=== PATIENT | female | born 1965 | race Caucasian/White ===

== ENCOUNTER 2016-12-04 15:58 | Inpatient (IN) | payer MEDICARE, OTHER ==
[~2016-12-04] VITALS: Ht 147.3 cm; Wt 69.3 kg
[2016-12-04] VITALS (8 sets, daily range): BP systolic 97–165; BP diastolic 61–81; PULSE 65–91; RESP 16–32; TEMP 97.8–99.1; O2SAT 95–99
[~2016-12-04 15:58] MED LIST: ASPI81TA82 PO; CLON.5 PO; FENO50TA PO; FISH1000 PO; FOLI1TAB PO; GUMMCHW PO; JANU100T PO; LAMO25 PO; LANTUSP SQ; MONOTAB PO; MONT10TA2 PO; NOVOLOGP2 SQ; OMEP20TA PO; OXCA300 PO; VITA100018 PO
[2016-12-04] MEDS ORDERED: SODIUM CHLORIDE 0.9% FLUSH 5 ML FLUSH IVF PRN ×2 (16:15→19:15)
--- NOTE | 2016-12-04 16:30 | PD ---
HPI Chief Complaint: seizure Time Seen by Provider: 16:03 Travel History International Travel<30 days: No Contact w/Intl Traveler<30days: No History of Present Illness HPI This is a 51-year-old female who has a history of mental retardation and seizure disorder who presents to the emergency department having had a witnessed seizure 3 hours ago by her mother. It lasted for several minutes and then subsided. Her mom was concerned because she continues to be somewhat post ictal and confused and this is unlike her. The patient is on Lamictal and Tegretol. The patient doesn't provide any history. PFSH Past Medical History High Cholesterol: Yes Developmental Delay: Yes (Age 12 mentation per mother) Diabetes: Yes Diminished Hearing: No Immunizations Current: Yes Seizures: Yes (Epilepsy) Triglycerides - High: Yes Tubal Ligation: Yes Past Surgical History Tonsillectomy: Yes Social History Alcohol Use: No Tobacco Use: No Substance Use: No Allergies-Medications (Allergen,Severity, Reaction): Coded Allergies: Codeine (Verified Allergy, Mild, SEIZURE, 12/04/16) Reported Meds & Prescriptions Reported Meds & Active Scripts Active Reported Folate (Folic Acid) 1 Mg Tab 1 Mg PO DAILY Lamotrigine 100 Mg Tab 100 Mg PO BID Fenofibrate 145 Mg Tab 145 Mg PO DAILY Oxcarbazepine 300 Mg Tab 300 Mg PO TID Omeprazole 20 Mg Tab 20 Mg PO DAILY Losartan (Losartan Potassium) 25 Mg Tab 25 Mg PO DAILY Clonazepam 0.5 Mg Tab 1-2 Tab PO HS Clonazepam 0.5 Mg Tab 0.5 Mg PO DAILY Januvia (Sitagliptin Phosphate) 100 Mg Tab 100 Mg PO DAILY Montelukast (Montelukast Sodium) 10 Mg Tab 10 Mg PO HS Lamotrigine 25 Mg Tab 75 Mg PO BID Review of Systems ROS Limitations: Poor Historian Physical Exam Narrative GENERAL:Well appearing, no acute distress SKIN: Warm and dry. HEAD: Atraumatic. Normocephalic. EYES: Pupils equal and round. No injection or drainage. ENT: Moist mucous membranes NECK: Trachea midline. CARDIOVASCULAR: Regular rate and rhythm. No murmur appreciated. RESPIRATORY: Clear to auscultation. Breath sounds equal bilaterally. GASTROINTESTINAL: Abdomen soft, non-tender, nondistended. MUSCULOSKELETAL: No obvious deformities. NEUROLOGICAL: Awake and alert. No obvious cranial nerve deficits. Moving all extremities. Intermittently has episodes where she blinks, rolls her eyes and looks away, interrupting her speech. PSYCHIATRIC: Appropriate mood and affect; insight and judgment normal. Data Data Last Documented VS Vital Signs Date Time Temp Pulse Resp B/P Pulse Ox O2 Delivery O2 Flow Rate FiO2 12/04/16 17:05 86 16 148/68 97 Room Air 12/04/16 16:10 99.1 Orders Complete Blood Count With Diff (12/04/16 16:12) Blood Glucose (12/04/16 16:12) Ecg Monitoring (12/04/16 16:12) Iv Access Insert/Monitor (12/04/16 16:12) Oximetry (12/04/16 16:12) Comprehensive Metabolic Panel (12/04/16 16:12) Sodium Chloride 0.9% Flush (Ns Flush) (12/04/16 16:15) Lamictal (Lamotrigine) (12/04/16 16:12) Trileptal (Oxycarbazapine) (12/04/16 16:12) Cath For Specimen (12/04/16 16:12) Urinalysis - C+S If Indicated (12/04/16 16:12) Levetiracetam Inj (Keppra Inj) (12/04/16 17:30) Fosphenytoin Inj (Cerebyx Inj) (12/04/16 17:30) Lorazepam Inj (Ativan Inj) (12/04/16 17:30) Admit Order (Ed Use Only) (12/04/16 18:00) Labs Laboratory Tests Test 12/04/16 12/04/16 16:30 17:00 White Blood Count 4.8 TH/MM3 Red Blood Count 3.85 MIL/MM3 Hemoglobin 12.6 GM/DL Hematocrit 37.1 % Mean Corpuscular Volume 96.3 FL Mean Corpuscular Hemoglobin 32.7 PG Mean Corpuscular Hemoglobin 34.0 % Concent Red Cell Distribution Width 12.7 % Platelet Count 189 TH/MM3 Mean Platelet Volume 7.3 FL Neutrophils (%) (Auto) 77.4 % Lymphocytes (%) (Auto) 15.5 % Monocytes (%) (Auto) 6.3 % Eosinophils (%) (Auto) 0.5 % Basophils (%) (Auto) 0.3 % Neutrophils # (Auto) 3.7 TH/MM3 Lymphocytes # (Auto) 0.8 TH/MM3 Monocytes # (Auto) 0.3 TH/MM3 Eosinophils # (Auto) 0.0 TH/MM3 Basophils # (Auto) 0.0 TH/MM3 CBC Comment DIFF FINAL Differential Comment Sodium Level 141 MEQ/L Potassium Level 4.0 MEQ/L Chloride Level 103 MEQ/L Carbon Dioxide Level 29.3 MEQ/L Anion Gap 9 MEQ/L Blood Urea Nitrogen 11 MG/DL Creatinine 0.86 MG/DL Estimat Glomerular Filtration 70 ML/MIN Rate Random Glucose 237 MG/DL Calcium Level 8.7 MG/DL Total Bilirubin 0.3 MG/DL Aspartate Amino Transf 13 U/L (AST/SGOT) Alanine Aminotransferase 21 U/L (ALT/SGPT) Alkaline Phosphatase 50 U/L Total Protein 6.6 GM/DL Albumin 3.5 GM/DL Urine Color YELLOW Urine Turbidity CLERA Urine pH 7.5 Urine Specific [place] 1.015 Urine Protein 100 mg/dL Urine Glucose (UA) 250 mg/dL Urine Ketones NEG mg/dL Urine Occult Blood TRACE Urine Nitrite NEG Urine Bilirubin NEG Urine Leukocyte Esterase NEG Urine RBC 4-9 /hpf Urine WBC 6-8 /hpf Urine Squamous Epithelial 0-5 /hpf Cells Urine Amorphous Sediment MOD Urine Bacteria FEW /hpf Urine Mucus FEW /lpf Microscopic Urinalysis Comment CULT NOT INDICATED MDM Medical Decision Making Medical Screen Exam Complete: Yes Emergency Medical Condition: Yes Interpretation(s) Afebrile, mild tachycardia, mild hypertension No leukocytosis Mild hyperglycemia Differential Diagnosis Seizure, electrolyte abnormality, medication noncompliance, status epilepticus Narrative Course This is a 51-year-old female who presents to the emergency department having had a tonic-clonic seizure 3 hours prior to arrival with prolonged confusion and on my exam intermittent episodes where her eyes beat to the side and she stops speaking concerning for possible partial seizure. She was placed on a monitor and an IV was established. Labs are obtained which were reassuring. I spoke to Dr. Pena who was on-call for neurology who recommended a milligram of Ativan, a load of fosphenytoin, and IV Keppra. Patient will be admitted for neurologic consultation. Physician Communication Physician Communication Discussed with Dr. Pena and Dr. Ledesma Diagnosis Primary Impression: Seizures Admitting Information Admitting Physician Requests: Admit Yolanda Mcnamara MD Dec 04, 2016 16:30
[2016-12-04 16:37] LABS: AUTOMATED NEUTROPHIL # 3.7 TH/MM3 (1.8-7.7); BASOPHIL % 0.3 % (0.0-2.0); EOSINOPHIL % 0.5 % (0.0-4.0); HEMATOCRIT 37.1 % (35.0-46.0); HEMO FLAGS DIFF FINAL; LYMPH % 15.5 % (9.0-44.0); LYMPHOCYTE # 0.8 TH/MM3 (1.0-4.8); MEAN CELL VOLUME 96.3 FL (80.0-100.0); MEAN CORPUSCULAR HEMOGLOBIN 32.7 PG (27.0-34.0); MONO % 6.3 % (0.0-8.0); NEUT % 77.4 % (16.0-70.0); PLATELET COUNT 189 TH/MM3 (150-450); RED BLOOD COUNT 3.85 MIL/MM3 (4.00-5.30); RED CELL DISTRIBUTION WIDTH 12.7 % (11.6-17.2); WHITE BLOOD COUNT 4.8 TH/MM3 (4.0-11.0)
[2016-12-04 16:51] LABS: CHLORIDE 103 MEQ/L (98-107); SODIUM (NA) 141 MEQ/L (136-145)
[2016-12-04 16:54] LABS: ANION GAP 9 MEQ/L (5-15); BICARBONATE 29.3 MEQ/L (21.0-32.0)
[2016-12-04 16:55] LABS: BLOOD UREA NITROGEN 11 MG/DL (7-18)
[2016-12-04 16:57] LABS: ALT (GPT) 21 U/L (10-53)
[2016-12-04 16:58] LABS: AST (GOT) 13 U/L (15-37); GLOMERULAR FILTRATION RATE 70 ML/MIN (>89)
[2016-12-04 16:59] LABS: TOTAL BILIRUBIN ADULT 0.3 MG/DL (0.2-1.0)
[2016-12-04 17:00] LABS: ALKALINE PHOSPHATASE 50 U/L (45-117)
[2016-12-04] MEDS ORDERED: OMEP20TA PO (17:11)
[2016-12-04] MEDS ORDERED: LAMO100T PO (17:11)
[2016-12-04] MEDS ORDERED: FOLI1TAB4 PO (17:11)
[2016-12-04] MEDS ORDERED: CLON0.5T PO ×2 (17:11)
[2016-12-04] MEDS ORDERED: MONT10TA4 PO (17:11)
[2016-12-04] MEDS ORDERED: OXCA300T PO (17:11)
[2016-12-04] MEDS ORDERED: LOSA25TA PO (17:11)
[2016-12-04] MEDS ORDERED: SITA1TAB2 PO (17:11)
[2016-12-04] MEDS ORDERED: FENO145T2 PO (17:11)
[2016-12-04] MEDS ORDERED: LAMO25TA PO (17:11)
[2016-12-04 17:23] LABS: BLOOD, URINE TRACE (NEG); GLUCOSE,URINE 250 mg/dL (NEG); KETONE, URINE NEG (NEG); NITRITE,URINE NEG (NEG); PH, URINE 7.5 (5.0-8.5)
[2016-12-04 17:27] LABS: URINE COLOR YELLOW (YELLW/STRAW)
[2016-12-04 17:28] LABS: BACTERIA, URINE FEW /hpf; COMMENT (UR) CULT NOT INDICATED; CULTURE IF INDICATED CULT NOT INDICATED; MUCUS URINE FEW /lpf (OCC); SQUAMOUS EPITHELIAL CELL URINE 0-5 /hpf (0-5)
[2016-12-04] MEDS ORDERED: FOSPHENYTOIN INJ 1,000 MGPE in SODIUM CHLORIDE 0.9% INJ 50 ML IV ONE (17:30)
[2016-12-04] MEDS ORDERED: LORazepam 2 MG/ML VIAL IV PUSH ONE (17:30)
[2016-12-04] MEDS ORDERED: levETIRAcetam INJ 500 MG in SODIUM CHLORIDE 0.9% INJ 100 ML IV ONE (17:30)
[2016-12-04] MEDS ORDERED: ONDANSETRON HCL 4 MG/2 ML VIAL IV ONE (18:45)
[2016-12-04] MEDS ORDERED: LORazepam 2 MG/ML VIAL IV PUSH PRN (19:15)
[2016-12-04] MEDS ORDERED: DEXTROSE 50% IN WATER 50 ML VIAL(D50) IV PUSH PRN (19:15)
[2016-12-04] MEDS ORDERED: GLUCAGON 1 MG/ML VIAL OTHER PRN (19:15)
--- NOTE | 2016-12-04 20:04 | RADHPO ---
EXAM DATE/TIME: 12/04/2016 19:42 [place] COMPARISON: CT BRAIN W/O CONTRAST, April 20, 2016, 11:01. INDICATIONS : Seizure. RADIATION DOSE: 63.13 CTDIvol (mGy) MEDICAL HISTORY : Diabetes mellitus type 2. Seizures. Hypertension. SURGICAL HISTORY : None. ENCOUNTER: Initial ACUITY: 1 day PAIN SCALE: 0/10 LOCATION: cranial TECHNIQUE: Multiple contiguous axial images were obtained of the head. Using automated exposure control and adj ustment of the mA and/or kV according to patient size, radiation dose was kept as low as reasonably a chievable to obtain optimal diagnostic quality images. FINDINGS: CEREBRUM: The ventricles are normal for age. No evidence of midline shift, mass lesion, hemorrhage or acute in farction. No extra-axial fluid collections are seen. POSTERIOR FOSSA: The cerebellum and brainstem are intact. The 4th ventricle is midline. The cerebellopontine angle i s unremarkable. EXTRACRANIAL: The visualized portion of the orbits is intact. SKULL: The calvaria is intact. No evidence of skull fracture. CONCLUSION: No acute intracranial abnormality. Osmani Scott MD on December 04, 2016 at 20:02 Board Certified Radiologist. This report was verified electronically.
[2016-12-04] MEDS: INSULIN ASPART SUPPLEMENTAL SCALE SQ SCH (20:58)
[2016-12-04] MEDS: SODIUM CHLORIDE 0.9% FLUSH 5 ML FLUSH IVF SCH (21:30)
[2016-12-05] VITALS (26 sets, daily range): BP systolic 107–173; BP diastolic 54–85; PULSE 62–80; RESP 15–30; TEMP 97.4–98.3; O2SAT 93–98
[2016-12-05] MEDS: CHLORHEXIDINE GLUCONATE 2 % 1 PACK (2 CLOTHS)(taper/protocol) TOP SCH (02:17)
[2016-12-05 04:57] LABS: BASOPHIL % 0.6 % (0.0-2.0); EOSINOPHIL # 0.1 TH/MM3 (0-0.4); EOSINOPHIL % 1.6 % (0.0-4.0); HEMATOCRIT 38.4 % (35.0-46.0); HEMO FLAGS DIFF FINAL; LYMPH % 38.7 % (9.0-44.0); LYMPHOCYTE # 2.2 TH/MM3 (1.0-4.8); MEAN CELL VOLUME 96.6 FL (80.0-100.0); MEAN CORPUSCULAR HGB CONC 33.1 % (32.0-36.0); MONO % 8.1 % (0.0-8.0); PLATELET COUNT 197 TH/MM3 (150-450); RED BLOOD COUNT 3.97 MIL/MM3 (4.00-5.30); RED CELL DISTRIBUTION WIDTH 13.6 % (11.6-17.2); WHITE BLOOD COUNT 5.8 TH/MM3 (4.0-11.0)
[2016-12-05 05:05] LABS: CHLORIDE 106 MEQ/L (98-107); POTASSIUM 3.7 MEQ/L (3.5-5.1); SODIUM (NA) 142 MEQ/L (136-145)
[2016-12-05 05:09] LABS: ANION GAP 7 MEQ/L (5-15); BICARBONATE 29.4 MEQ/L (21.0-32.0)
[2016-12-05 05:32] LABS: ALKALINE PHOSPHATASE 42 U/L (45-117); ALT (GPT) 21 U/L (10-53); AST (GOT) 10 U/L (15-37); BLOOD UREA NITROGEN 10 MG/DL (7-18); GLOMERULAR FILTRATION RATE 85 ML/MIN (>89); TOTAL BILIRUBIN ADULT 0.3 MG/DL (0.2-1.0)
[2016-12-05] MEDS: INSULIN ASPART SUPPLEMENTAL SCALE SQ SCH ×4 (06:58→21:13)
[2016-12-05] MEDS: SODIUM CHLORIDE 0.9% FLUSH 5 ML FLUSH IVF SCH ×2 (09:00→21:13)
--- NOTE | 2016-12-05 10:22 | HHI.HP ---
[facility] Service [place] [facility] Primary Care Physician Erwin Roberson MD Admission Diagnosis seizures Diagnoses: (1) Seizures Diagnosis: Principal (2) Hypertension Diagnosis: Secondary (3) Hyperlipidemia Diagnosis: Secondary (4) Diabetes Diagnosis: Secondary (5) Developmental delay Diagnosis: Secondary Chief Complaint: Seizure Travel History International Travel<30 Days: No Contact w/Intl Traveler <30 Da: No Traveled to Known Affected Are: No History of Present Illness 51-year-old female with known history of developmental delay, seizure disorder, hypertension, hyperlipidemia, diabetes who presented to hospital with her mother because of witnessed seizure. Patient does have significant developmental delay. Was able to obtain any significant history from the patient. Information taken from medical records and nursing staff. Patient does have history of seizures and apparently had a witnessed tonic-clonic seizure at home. Patient was brought to the emergency department and was given IV Keppra, IV fosphenytoin. As indicated by ER physician the patient was still having some tremulous activity. However when seen the patient this morning she is wide awake. Conversing appropriate for her mentation. States that she is feeling fine. States that she was sick yesterday that when she came to the hospital. Patient is on multiple medications for seizures to include Lamictal, oxcarbazepine, clonazepam. Records do not indicate patient has been admitted the hospital for for seizures. Patient was admitted the hospital to the ICU for close monitoring and neurological workup. Review of Systems ROS Limitations: Poor Historian Past Family Social History Past Medical History Hypertension Hyperlipidemia Developmental delay Seizure disorder Diabetes Past Surgical History Tubal ligation cataract surgery Tonsillectomy Reported Medications Reported Meds & Active Scripts Active Reported Folate (Folic Acid) 1 Mg Tab 1 Mg PO DAILY Lamotrigine 100 Mg Tab 100 Mg PO BID Fenofibrate 145 Mg Tab 145 Mg PO DAILY Oxcarbazepine 300 Mg Tab 300 Mg PO TID Omeprazole 20 Mg Tab 20 Mg PO DAILY Losartan (Losartan Potassium) 25 Mg Tab 25 Mg PO DAILY Clonazepam 0.5 Mg Tab 1-2 Tab PO HS Clonazepam 0.5 Mg Tab 0.5 Mg PO DAILY Januvia (Sitagliptin Phosphate) 100 Mg Tab 100 Mg PO DAILY Montelukast (Montelukast Sodium) 10 Mg Tab 10 Mg PO HS Lamotrigine 25 Mg Tab 75 Mg PO BID Allergies: Coded Allergies: Codeine (Verified Allergy, Mild, SEIZURE, 12/04/16) Family History Reviewed and unknown due to poor historian and developmental delay Social History Reviewed is unknown due to poor historian and developmental delay Physical Exam Vital Signs Vital Signs Date Time Temp Pulse Resp B/P Pulse Ox O2 Delivery O2 Flow Rate FiO2 12/05/16 09:00 64 23 151/85 12/05/16 08:00 66 17 131/72 12/05/16 07:45 97 21 12/05/16 07:00 97.6 70 15 120/81 12/05/16 06:00 66 12/05/16 06:00 66 17 140/68 97 12/05/16 05:00 68 19 119/60 12/05/16 04:00 97.4 66 16 117/54 96 12/05/16 04:00 66 12/05/16 03:15 62 12/05/16 03:15 62 15 149/79 96 12/05/16 03:00 68 19 173/76 97 12/05/16 03:00 68 12/05/16 02:00 66 17 136/67 95 12/05/16 02:00 66 12/05/16 01:00 70 23 107/65 93 12/05/16 00:00 72 26 150/76 94 12/05/16 00:00 72 12/04/16 23:24 97.8 74 32 165/81 98 12/04/16 21:20 65 18 143/73 99 Room Air 12/04/16 20:29 95 12/04/16 19:10 74 97/61 95 Room Air 12/04/16 18:08 83 16 141/70 97 Room Air 12/04/16 17:05 86 16 148/68 97 Room Air 12/04/16 16:20 17 96 Room Air 12/04/16 16:20 91 17 96 Room Air 12/04/16 16:10 99.1 91 17 157/70 96 Physical Exam GENERAL: Well-developed, well-nourished, in no acute distress. alert HEENT: Head is normocephalic without any lesions or masses noted. Facial features are symmetric. Eyes: Pupils equal round reactive to light. Extraocular muscles are intact. Conjunctivae were clear. Oropharyngeal: Pharynx without any erythema edema. Tongue is midline without deviation. Buccal mucosa is moist without any masses or lesions NECK: Supple without any masses. Trachea midline no deviation. No JVD, no bruits are appreciated CARDIAC: Regular rhythm, regular rate. S1/S2 are heard. No murmurs gallops or rubs. LUNGS: Clear to auscultation bilaterally. No wheeze, rhonchi or rales. No use of accessory muscles on inspiration or expiration. ABDOMEN: Soft, nontender. Nondistended. Bowel sounds heard in all 4 quadrants. No organomegaly or masses. Negative rebound, negative guarding EXTREMITIES: No edema, pulses are equal bilaterally. No cyanosis or clubbing NEUROLOGY: Mood and affect appear appropriate for patient with developmental delay. Cranial nerves II through XII grossly intact. Muscle strength 5/5 in upper and lower extremities bilaterally. Deep tendon reflexes are 2+ in upper and lower extremities bilaterally. Laboratory Laboratory Tests Test 12/04/16 12/04/16 12/04/16 12/05/16 16:30 17:00 23:45 04:28 White Blood Count 4.8 5.8 Red Blood Count 3.85 3.97 Hemoglobin 12.6 12.7 Hematocrit 37.1 38.4 Mean Corpuscular Volume 96.3 96.6 Mean Corpuscular Hemoglobin 32.7 32.0 Mean Corpuscular Hemoglobin 34.0 33.1 Concent Red Cell Distribution Width 12.7 13.6 Platelet Count 189 197 Mean Platelet Volume 7.3 8.2 Neutrophils (%) (Auto) 77.4 51.0 Lymphocytes (%) (Auto) 15.5 38.7 Monocytes (%) (Auto) 6.3 8.1 Eosinophils (%) (Auto) 0.5 1.6 Basophils (%) (Auto) 0.3 0.6 Neutrophils # (Auto) 3.7 3.0 Lymphocytes # (Auto) 0.8 2.2 Monocytes # (Auto) 0.3 0.5 Eosinophils # (Auto) 0.0 0.1 Basophils # (Auto) 0.0 0.0 CBC Comment DIFF FINAL DIFF FINAL Differential Comment Sodium Level 141 142 Potassium Level 4.0 3.7 Chloride Level 103 106 Carbon Dioxide Level 29.3 29.4 Anion Gap 9 7 Blood Urea Nitrogen 11 10 Creatinine 0.86 0.73 Estimat Glomerular Filtration 70 85 Rate Random Glucose 237 119 Calcium Level 8.7 8.9 Total Bilirubin 0.3 0.3 Aspartate Amino Transf 13 10 (AST/SGOT) Alanine Aminotransferase 21 21 (ALT/SGPT) Alkaline Phosphatase 50 42 Total Protein 6.6 6.4 Albumin 3.5 3.5 Urine Color YELLOW Urine Turbidity CLERA Urine pH 7.5 Urine Specific [place] 1.015 Urine Protein 100 Urine Glucose (UA) 250 Urine Ketones NEG Urine Occult Blood TRACE Urine Nitrite NEG Urine Bilirubin NEG Urine Leukocyte Esterase NEG Urine RBC 4-9 Urine WBC 6-8 Urine Squamous Epithelial 0-5 Cells Urine Amorphous Sediment MOD Urine Bacteria FEW Urine Mucus FEW Microscopic Urinalysis Comment CULT NOT INDICATED Nasal Screen MRSA (PCR) NEGATIVE Phenytoin (Dilantin) Level 13.6 Result Diagram: 12/05/168 12/05/168 Imaging Last Impressions Head CT 12/04/16 0000 Signed Impressions: Service Date/Time: November 19:42 - CONCLUSION: No acute intracranial abnormality. Osmani Scott MD Assessment and Plan Assessment and Plan Active seizure in patient with known history of seizures: Status post fosphenytoin, Keppra IV in emergency department. Dilantin level 13.6. Obtain levels for oxcarbazepine, Lamictal. Obtain EEG. Neurology consulted for further recommendations. Resume home medications Hypertension, hyperlipidemia: Resume home medications Diabetes: Resume home medications DVT prevention: Sequential compression devices Written by Darwin Humphries PA-C, acting as scribe for Dr. Ledesma on 11/1716 at 1050. The documentation accurately reflects the work and decisions performed face-to- face by Dr. Ledesma on 12/05/16 at 1050. Physician Certification 2 Midnight Certification Type: Admission for Inpatient Services Order for Inpatient Services The services are ordered in accordance with Medicare regulations or non- Medicare payer requirements, as applicable. In the case of services not specified as inpatient-only, they are appropriately provided as inpatient services in accordance with the 2-midnight benchmark. Estimated LOS (days): 2 days is the estimated time the patient will need to remain in the hospital, assuming treatment plan goals are met and no additional complications. Post-Hospital Plan: Not yet determined Problem Qualifiers (1) Hypertension: Qualified Code: I15.9 - Secondary hypertension (2) Hyperlipidemia: Qualified Code: E78.5 - Hyperlipidemia, unspecified hyperlipidemia type (3) Diabetes: Qualified Code: E11.8 - Type 2 diabetes mellitus with complication, without long-term current use of insulin Darwin Humphries Dec 05, 2016 10:22 Devorah Ledesma MD Dec 05, 2016 18:10
--- NOTE | 2016-12-05 11:03 | MB ---
cc: NANDO SOUSA MD DATE OF CONSULTATION 12/05/2016 REASON FOR CONSULTATION Break through seizures. HISTORY OF PRESENT ILLNESS Ms. Leon is a 51-year-old female with past medical history of mental retardation and seizure disorder who presented to the emergency department of [facility] having a witnessed seizure by her mother. The patient is a poor historian, hence most of the medical information is obtained from the nurse and the medical records. As per the mother, the episode lasted for several minutes, followed by postictal confusional state. The patient is on a Lamictal 75 mg twice daily and Oxcarbazepine 300 mg three times daily. REVIEW OF SYSTEMS A 12-point review of systems is negative except for what is stated in the HPI. PAST MEDICAL HISTORY 1. Hypercholesterolemia 2. Developmental delay and mental retardation about age 12 years mentation per the mother. 3. Diabetes 4. High triglycerides 5. Tubal ligation 6. Status post tonsillectomy SOCIAL HISTORY Denies alcohol, tobacco and substance abuse. ALLERGIES CODEINE REPORTED MEDICATIONS 1. Folic acid 1 mg daily 2. Lamotrigine 100 mg twice daily 3. Oxcarbazepine 300 mg three times daily 4. Clonazepam 0.5 mg twice daily PHYSICAL EXAMINATION GENERAL: Awake, alert, not in acute distress HEENT: Atraumatic, normocephalic. Intact vision. Normal hearing. CARDIOVASCULAR: Regular rate and rhythm. RESPIRATORY: Clear to auscultation. No wheezes. MUSCULOSKELETAL: There is no obvious deformities, moves all extremities equally. No clubbing. NEUROLOGIC: Awake, alert, oriented to time, person and place. However, her level of cognition is limited due to the mental retardation. She is able to reach. She is able to speak coherently, however with limited knowledge. Speech is intact. No slurring. No dysphagia. Cranial nerve examination is grossly intact II-XII. Motor sensory examination is grossly normal with a lot of give-way, sensation intact bilaterally throughout. Cerebellar functions intact [id number]. Reflexes are intact. Plantar's are bilaterally downgoing. LABORATORY DATA White blood cells 5.8, hemoglobin 12.7, platelet 197. Sodium 142, potassium 3.7 , anion gap 7, calcium 8.9, AST 10, alkaline phosphatase 42. Phenytoin level is therapeutic at 30.6 pending oxcarbazepine and Lamotrigine. DIAGNOSTICS IMAGING - Head CT scan without contrast is negative for an acute intracranial abnormality. DIAGNOSTIC IMPRESSION 1. History of mental retardation. 2. History of seizure disorder. The patient is currently on Lamotrigine and Oxcarbazepine. 3. Breakthrough seizures 4. The patient is a poor historian. There was no family around and no verification for the doses and the adherence to medication. However, further workup will be done so an EEG will be obtained. PLAN 1. Resume her home medications of oxcarbazepine dose of 300 mg three times daily and we can go up on the oxcarbazepine to 1200 mg per day in divided doses. 2. Resume Lamictal (Lamotrigine home medication). It is not clear what her exact home dose is, but according to the records, 350 mg. 3. Pending the levels of the anti-seizure medications. 4. Seizure precautions. 5. Ativan for seizures lasting more than three minutes Thank you for the opportunity to participate in the care of your patient. MD CHEMA Yates/MECHE /9:37 AM /10:28 AM ALL
[2016-12-05] MEDS: lamoTRIgine 100 MG TAB PO SCH ×2 (11:28→21:12)
[2016-12-05] MEDS: LOSARTAN 25 MG TAB PO SCH (11:28)
[2016-12-05] MEDS: FENOFIBRATE 145 MG TAB PO SCH (11:28)
[2016-12-05] MEDS: FOLIC ACID 1 MG TAB PO SCH (11:28)
[2016-12-05] MEDS: clonazePAM 0.5 MG TAB PO SCH (11:28)
[2016-12-05] MEDS: PANTOPRAZOLE SOD 20 MG DELAYED RELEASE TAB PO SCH (11:28)
[2016-12-05] MEDS: OXcarbazepine 300 MG TAB PO SCH ×2 (11:38→17:04)
[2016-12-05] MEDS: lamoTRIgine 25 MG TAB PO SCH ×2 (11:38→21:12)
[2016-12-05] MEDS ORDERED: CHLORHEXIDINE GLUCONATE 2 % 1 PACK (2 CLOTHS)(extra cloths) TOP PRN (23:45)
[2016-12-06] VITALS (21 sets, daily range): BP systolic 140–199; BP diastolic 67–98; PULSE 56–78; RESP 14–27; TEMP 97.8–98; O2SAT 95–98
[2016-12-06] MEDS: CHLORHEXIDINE GLUCONATE 2 % 1 PACK (2 CLOTHS)(taper/protocol) TOP SCH (02:27)
[2016-12-06] MEDS ORDERED: cloNIDine HCL 0.1 MG TAB PO ONE (02:30)
[2016-12-06] MEDS: INSULIN ASPART SUPPLEMENTAL SCALE SQ SCH ×2 (06:48→11:40)
[2016-12-06] MEDS: LOSARTAN 25 MG TAB PO SCH (08:24)
[2016-12-06] MEDS: lamoTRIgine 25 MG TAB PO SCH (08:24)
[2016-12-06] MEDS: OXcarbazepine 300 MG TAB PO SCH ×2 (08:25→13:33)
[2016-12-06] MEDS: lamoTRIgine 100 MG TAB PO SCH (08:25)
[2016-12-06] MEDS: FOLIC ACID 1 MG TAB PO SCH (08:25)
[2016-12-06] MEDS: clonazePAM 0.5 MG TAB PO SCH (08:25)
[2016-12-06] MEDS: FENOFIBRATE 145 MG TAB PO SCH (08:25)
[2016-12-06] MEDS: PANTOPRAZOLE SOD 20 MG DELAYED RELEASE TAB PO SCH (08:25)
[2016-12-06] MEDS: SODIUM CHLORIDE 0.9% FLUSH 5 ML FLUSH IVF SCH (08:30)
--- NOTE | 2016-12-06 09:25 | HHI.PR ---
Subjective Remarks Patient seen and examined today with Dr. Ledesma. Patient quite pleasant this morning. Has been no recurrent seizures since being in the hospital. Will need to discuss with neurology treatment plan. Objective Vitals Vital Signs Date Time Temp Pulse Resp B/P Pulse Ox O2 Delivery O2 Flow Rate FiO2 12/06/16 08:46 98 21 12/06/16 08:00 98.0 64 16 141/67 98 12/06/16 06:00 56 14 160/86 12/06/16 06:00 56 12/06/16 05:00 60 16 140/70 12/06/16 04:02 97.9 68 16 170/85 95 12/06/16 04:00 64 12/06/16 03:00 68 18 195/78 12/06/16 02:00 74 12/06/16 02:00 74 16 199/89 95 12/06/16 01:02 68 21 195/91 12/06/16 00:22 97.9 66 15 173/86 96 12/06/16 00:00 66 12/05/16 22:00 70 12/05/16 21:00 70 22 151/68 12/05/16 20:36 98 21 12/05/16 20:00 98.0 66 19 138/72 96 12/05/16 20:00 62 12/05/16 19:00 70 23 119/61 96 12/05/16 18:00 68 12/05/16 17:00 98.3 66 22 119/72 12/05/16 16:00 68 18 119/64 12/05/16 16:00 68 12/05/16 15:00 98.2 80 30 113/68 12/05/16 14:00 80 12/05/16 13:00 97.4 76 20 116/72 12/05/16 12:00 72 24 126/68 12/05/16 12:00 72 12/05/16 11:00 97.8 70 22 128/84 12/05/16 10:00 62 15 155/74 97 12/05/16 10:00 62 I/O 12/05/16 12/05/16 12/05/16 12/06/16 12/06/16 12/06/16 07:00 15:00 23:00 07:00 15:00 23:00 Intake Total 0 ml 460 ml 120 ml 120 ml Output Total 800 ml 600 ml 225 ml Balance -800 ml -140 ml 120 ml -105 ml Intake Oral 0 ml 460 ml 120 ml 120 ml IV Total 0 ml 0 ml Output Urine Total 800 ml 600 ml 225 ml # Voids 3 3 1 # Bowel Movements 0 0 0 0 Result Diagram: 12/05/1642712/05/16427 Objective Remarks GENERAL: Well-developed, well-nourished, in no acute distress. alert HEENT: Head is normocephalic without any lesions or masses noted. Facial features are symmetric. Eyes: Extraocular muscles are intact. Conjunctivae were clear. NECK: Supple without any masses. Trachea midline no deviation. No JVD, CARDIAC: Regular rhythm, regular rate. S1/S2 are heard. No murmurs gallops or rubs. LUNGS: Clear to auscultation bilaterally. No wheeze, rhonchi or rales. No use of accessory muscles on inspiration or expiration. ABDOMEN: Soft, nontender. Nondistended. Bowel sounds heard in all 4 quadrants. No organomegaly or masses. Negative rebound, negative guarding EXTREMITIES: No edema, pulses are equal bilaterally. No cyanosis or clubbing NEUROLOGY: Mood and affect appear appropriate for patient with developmental delay. Cranial nerves II through XII grossly intact. Moving all extremities, speech is clear Urinary Catheter: No Vascular Central Line Catheter: No A/P Assessment and Plan Active seizure in patient with known history of seizures: Status post fosphenytoin, Keppra IV in emergency department. Dilantin level 13.6. Awaiting levels for oxcarbazepine, Lamictal. Awaiting EEG results. Neurology consulted for further recommendations. Home medications have been resumed. Discussed with neurology Dr Cabrera, he is concerned about compliancy with outpatient medications. He feels that the patient can be discharged on same medications that she was taking outpatient setting. However, he indicates that the patient should follow-up with her neurologist on Thursday. Did continue to follow therapeutic drug levels and if they are low should notify them an increased dose if possible. Hypertension, hyperlipidemia: Resume home medications Diabetes: Resume home medications DVT prevention: Sequential compression devices Written by Darwin Humphries PA-C, acting as scribe for Dr. Ledesma on 11/1816 at 1405. The documentation accurately reflects the work and decisions performed face-to- face by Dr. Ledesma on 12/06/16 at 1405. Discharge Planning Discharge home in stable condition Activity: Ad teja. Diet: Diabetic diet Medications per medication reconciliation Follow-up primary medical doctor one week, neurologist on Thursday Darwin Humphries Dec 06, 2016 09:25 Devorah Ledesma MD Dec 06, 2016 20:00
--- NOTE | 2016-12-06 12:05 | MG ---
cc: STU WANG MD Lab No: [id number] Date: 12/05/16 Age: 51 Sex: F Race: DATE OF : 1965 HISTORY A 51-year-old with history of breakthrough seizure with history of previous epilepsy and seizures. DESCRIPTION OF RECORDING 7-8 Hz high amplitude beta activity, 20-60 microvolts occurring. Limited driving with photic stimulation. Tiny sharp waves T4 seen at epoch 40. Tiny spike wave T4 epoch 43. Frontal sharp waves epoch 45. Phase reversal at T6 epoch 64. to tiny phase reversal at T5 epoch 66. Right frontal sharp waves epoch 71. Left frontal sharp wave epoch 95. T5 phase reversal epoch 95. epoch 97. Left posterior hemisphere phase reversal epoch 98, generalized slowing with transition into drowsy state. Frontal sharp waves epoch 102. Dysmorphic bursts of delta sharps epoch 109. Single-lead EKG showing sinus rhythm. INTERPRETATION Frequent isolated multifocal but perhaps right-sided greater than left frontotemporal sharp waves, small phase reversals with underlying mild encephalopathy in sleep state. No active seizures however. Clinical correlation. MD RAYMUNDO Dowd/HARRY /10:17 AM /11:22 AM [id number]
--- NOTE | 2016-12-06 14:12 | HHI.DCPOC ---
Discharge Care Plan Diagnosis: (1) Seizures (2) Developmental delay Goals to Promote Your Health * To prevent worsening of your condition and complications * To maintain your health at the optimal level Directions to Meet Your Goals Take your medications as prescribed Follow your dietary instruction Follow activity as directed Keep your appointments as scheduled Take your immunizations and boosters as scheduled If your symptoms worsen call your PCP, if no PCP go to Urgent Care Center or Emergency Room Smoking is Dangerous to Your Health. Avoid second hand smoke Call the 24-hour hour crisis hotline for domestic abuse at [facility] Humphries Dec 06, 2016 14:12
== END 2016-12-06 14:45 | disposition home or self-care (01) | DRG 101 ==
LOC: PHED 15:58 → PHEDA 18:01 → PHICU 23:18
PROVIDERS: ADMIT Hospitalist; ATTEND Hospitalist
DX: G40.89 Other seizures (principal); I10 Essential (primary) hypertension; F79 Unspecified intellectual disabilities; E11.9 Type 2 diabetes mellitus without complications; E78.1 Pure hyperglyceridemia; E78.00 Pure hypercholesterolemia, unspecified
CPT/HCPCS: 70450; 80053; 80175; 80183; 80185; 81001; 82948; 85025; 87641; 95819; 96374; J1815; J1953; J2060; J2405; P9612; Q2009

== ENCOUNTER 2017-01-24 14:12 | Emergency (ER) | payer MEDICARE, OTHER ==
[~2017-01-24] VITALS: Ht 149.9 cm; Wt 70.0 kg
[~2017-01-24 14:12] MED LIST changes: -ASPI81TA82 PO; -CLON.5 PO; +CLON0.5T PO; +FENO145T2 PO; -FENO50TA PO; -FISH1000 PO; -FOLI1TAB PO; +FOLI1TAB4 PO; -GUMMCHW PO; -JANU100T PO; +LAMO100T PO; -LAMO25 PO; +LAMO25TA PO; -LANTUSP SQ; +LOSA25TA PO; -MONOTAB PO; -MONT10TA2 PO; +MONT10TA4 PO; -NOVOLOGP2 SQ; -OXCA300 PO; +OXCA300T PO; +SITA1TAB2 PO; -VITA100018 PO
[2017-01-24 14:27] VITALS: PULSE 73; RESP 16; TEMP 98.3; O2SAT 100
[2017-01-24] MEDS ORDERED: NOVOLOGP2 SQ (14:46)
[2017-01-24] MEDS ORDERED: LANTUS2P SQ (14:46)
--- NOTE | 2017-01-24 15:12 | PD ---
HPI Chief Complaint: Musculoskeletal Complaint Time Seen by Provider: 15:00 Travel History International Travel<30 days: No Contact w/Intl Traveler<30days: No Traveled to known affect area: No History of Present Illness HPI 51-year-old female with history of seizures presents to the emergency room with her mother for evaluation of left arm pain. Patient is developmentally delayed with a mentality of a 10-year-old according to mother. Mother provides some of the history. Mother states she has had uncontrollable seizures since 13-months- old and her physicians are constantly changing her medication. Mother states one week ago she had a seizure and banged her arm. Since then she has been complaining of left arm pain, worse with range of motion. States anytime she moves her arm she is in significant pain. Her mother has been applying heat, ice, massage and, and applying topical pain reliever without significant relief. Patient cannot localize her pain but states her entire left arm hurts. Denies paresthesias. Denies any other injuries. She denies chest pain. PFSH Past Medical History Anxiety: Yes Cardiovascular Problems: Yes High Cholesterol: Yes Developmental Delay: Yes (Age 12 mentation per mother) Diabetes: Yes Patient Takes Glucophage: Yes Diminished Hearing: No GERD: Yes Hypertension: Yes Neurologic: Yes Immunizations Current: Yes Seizures: Yes (Epilepsy) Triglycerides - High: Yes Tetanus Vaccination: < 5 Years Influenza Vaccination: Yes ?: Not Menopausal: Yes Tubal Ligation: Yes Past Surgical History Endocrine Surgery: Yes (Diabetes) Gynecologic Surgery: Yes (tubal ligation) Tonsillectomy: Yes Social History Alcohol Use: No Tobacco Use: No Substance Use: No Allergies-Medications (Allergen,Severity, Reaction): Coded Allergies: Codeine (Verified Allergy, Mild, SEIZURE, 01/24/17) Reported Meds & Prescriptions Reported Meds & Active Scripts Active Reported Lantus Inj (Insulin Glargine) 1,000 Unit/10 Ml Vial 22 Units SQ HS Novolog Inj (Insulin Aspart) 1,000 Unit/10 Ml Vial 0 SQ DIRECTED Sliding Scale as directed. Folate (Folic Acid) 1 Mg Tab 1 Mg PO DAILY Lamotrigine 100 Mg Tab 100 Mg PO BID Fenofibrate 145 Mg Tab 145 Mg PO DAILY Oxcarbazepine 300 Mg Tab 300 Mg PO QID Omeprazole 20 Mg Tab 20 Mg PO DAILY Losartan (Losartan Potassium) 25 Mg Tab 25 Mg PO DAILY Clonazepam 0.5 Mg Tab 0.5 Mg PO TID Januvia (Sitagliptin Phosphate) 100 Mg Tab 100 Mg PO DAILY Montelukast (Montelukast Sodium) 10 Mg Tab 10 Mg PO HS Lamotrigine 25 Mg Tab 150 Mg PO BID Review of Systems Except as stated in HPI: all other systems reviewed are Neg Physical Exam Narrative GENERAL: Well-nourished, developmentally delayed female in no acute distress. Resting comfortably in bed. Mother is with patient. SKIN: Focused skin assessment warm/dry. Large area of ecchymosis on the volar left wrist. HEAD: Normocephalic. EYES: No scleral icterus. No injection or drainage. NECK: Supple, trachea midline. No JVD or lymphadenopathy. CARDIOVASCULAR: Regular rate and rhythm without murmurs, gallops, or rubs. RESPIRATORY: Breath sounds equal bilaterally. No accessory muscle use. MUSCULOSKELETAL: No cyanosis. No significant edema. When distracted, patient uses her arm more freely. There is no point tenderness to palpation. 2+ radial pulse. Limited range of motion secondary to pain. Data Data Last Documented VS Vital Signs Date Time Temp Pulse Resp B/P Pulse Ox O2 Delivery O2 Flow Rate FiO2 01/24/17 14:36 16 01/24/17 14:27 98.3 73 100 Orders Forearm (2vws) (01/24/17 ) Humerus (Min 2vws) (01/24/17 ) MDM Medical Decision Making Medical Screen Exam Complete: Yes Emergency Medical Condition: Yes Medical Record Reviewed: Yes Differential Diagnosis Sprain versus fracture versus contusion Narrative Course 51-year-old female with history of developmental delay and seizures presents to the emergency room for evaluation of left arm pain for the past week. Patient has had seizures since 13-months old. She believes during a seizure one week ago she struck her arm on the wall. She has had persistent pain since then. Pain is worse with range of motion and palpation. Patient has the mentality of a 10-year-old according to her mother and mother provides some of the history. Mother states that when distracted, she doesn't seem to be in as much pain. This is observed in the emergency room. There is a large area of ecchymosis on the volar wrist. Left upper extremity is neurologically intact with 2+ radial pulse. History and physical exam are consistent with acute injury. X-ray of the left humerus, radius, and ulna are negative for acute bony abnormality. This is contusion. Patient was placed in an Josh wrap and discharged with orthopedic instructions. Told to follow up with her primary care physician or return to the emergency room for worsening symptoms. Mother understands and agrees to this plan. Diagnosis Primary Impression: Contusion of left lower arm Qualified Code: S50.12XA - Contusion of left lower arm, initial encounter Referrals: Primary Care Physician Patient Instructions: Contusion in Adults (ED), General Instructions Additional Instructions: Rest and drink plenty of fluids. Use wrap as needed for pain. Alternate Tylenol and ibuprofen with food as directed, as needed for pain. Apply ice to the affected area for 20 minutes at a time, as needed for pain and swelling. Follow-up with a primary care physician. Return to the emergency room for worsening symptoms. Disposition: 01 DISCHARGE HOME Condition: Stable Rebecca Orr January 24, 2017 15:12
--- NOTE | 2017-01-24 16:13 | RADHPO ---
EXAM DATE/TIME: 01/24/2017 15:20 [facility] COMPARISON: No previous studies available for comparison. INDICATIONS : Left humerus pain. Patients mother states possible injury during seizure. MEDICAL HISTORY : Diabetes mellitus type II. Hypertension Seizures. SURGICAL HISTORY : None. ENCOUNTER: Initial ACUITY: 1 day PAIN SCORE: 10/10 LOCATION: Left humerus. FINDINGS: Two view examination of the left humerus demonstrates no evidence of fracture or dislocation. Bony m ineralization is normal. The soft tissue structures are intact. CONCLUSION: Normal examination for a patient of this age. Félix Elmore MD on January 24, 2017 at 16:11 Board Certified Radiologist. This report was verified electronically.
--- NOTE | 2017-01-24 16:21 | RADHPO ---
EXAM DATE/TIME: 01/24/2017 15:25 [facility] COMPARISON: No previous studies available for comparison. INDICATIONS : Left forearm pain. Patient's mother states possible injury during seizure. MEDICAL HISTORY : Diabetes mellitus type II. Hypertension Seizures. SURGICAL HISTORY : None. ENCOUNTER: Initial ACUITY: 1 day PAIN SCORE: 10/10 LOCATION: Left forearm. FINDINGS: Two view examination of the left forearm demonstrates no evidence of fracture or dislocation. Bony m ineralization is normal. The soft tissue structures are intact. CONCLUSION: 1. No acute findings. Probable remote distal radius and ulnar fractures. Félix Elmore MD on January 24, 2017 at 16:18 Board Certified Radiologist. This report was verified electronically.
== END 2017-01-24 16:46 | disposition short-term general hospital (02) ==
LOC: PHEFT 14:12
DX: S50.12XA Contusion of left forearm, initial encounter (principal); R41.89 Other symptoms and signs involving cognitive functions and awareness; G40.909 Epilepsy, unspecified, not intractable, without status epilepticus; I10 Essential (primary) hypertension; E78.2 Mixed hyperlipidemia; E11.9 Type 2 diabetes mellitus without complications; F41.9 Anxiety disorder, unspecified; Z79.4 Long term (current) use of insulin; W22.01XA Walked into wall, initial encounter; Y93.9 Activity, unspecified; Y92.9 Unspecified place or not applicable; Y99.9 Unspecified external cause status
CPT/HCPCS: 73060; 73090; 99284

== ENCOUNTER → 2017-02-23 | Outpatient (CLI) | payer MEDICARE, OTHER ==
--- NOTE | 2017-02-20 07:53 | MH ---
cc: ANDREW LIM DATE OF ADMISSION: 02/23/2017 ADMITTING DIAGNOSIS: Cloudy posterior capsule, right eye. HISTORY OF PRESENT ILLNESS: This 51-year-old white female is coming through [facility] for the purpose of a YAG laser posterior capsulotomy of the right eye. She is status post bilateral cataract surgery with intraocular lens implants in 1999 and a YAG laser posterior capsulotomy in 2002, and now has a cloudy posterior capsule in the right eye and elected to have a YAG laser posterior capsulotomy at this time. PAST MEDICAL HISTORY: 1. The patient has a history of diabetes type 2 for 18 years on insulin. 2. She also has epilepsy with seizures. 3. Mental retardation. 4. Kidney stones. 5. Allergies. 6. Cholesterol problems. PAST SURGICAL HISTORY: 1. Tubal ligation. 2. The cataract surgery mentioned above in both eyes and the YAG laser posterior capsulotomy in the left eye. 3. Kidney stones. MEDICATIONS: Her daily medications include: 1. Omeprazole. 2. Januvia. 3. Losartan. 4. Clonazepam. 5. . 6. Folic acid. 7. Lamotrigine. 8. Montelukast. 9. Fenofibrate. 10. Insulin. 11. NovoLog. 12. Lantus. ALLERGIES: 1. CODEINE. 2. ANTIHISTAMINES. SOCIAL HISTORY: Noncontributory. FAMILY HISTORY: Noncontributory. REVIEW OF SYSTEMS: Noncontributory. OCULAR EXAMINATION: On ocular exam, the patient's best corrected visual acuity is 20/50 in each eye in room light. Visual alberts are full to confrontation testing. The extraocular muscle exam reveals full versions with orthophoria at distance and exophoria at near. Pupils are 3 mm equal, round, reactive to light without afferent defect. Anterior segment examination reveals a posterior chamber intraocular lens in place in both eyes with a dense cloudy posterior capsule in the right eye and a YAG laser posterior capsulotomy in the left. Intraocular pressures are 22 in the right eye and 18 in the left by applanation tonometry. Dilated fundus exam revealed sharp disk with cup-to-disk ratio 0.3 bilaterally. There are some dot hemorrhages in the macula of each eye and background. A posterior vitreous detachment is present bilaterally. IMPRESSION: 1. Cloudy posterior capsule, right eye. 2. Pseudophakia, both eyes 3. Nonproliferative diabetic retinopathy, both eyes 4. Posterior vitreous detachment both eyes. PLAN: The plan is YAG laser posterior capsulotomy of the right eye. The patient will follow up with Dr. Esqueda for her diabetic retinopathy. MD EBONY Vásquez/BUD /4:25 PM /7:50 AM
[~2017-02-23] MED LIST changes: +BALANCED SALT SOLN OPHT IRRIG 15 ML BTL ONE; +FLUOROMETHOLONE 0.25% OPHT SUSP 5 ML BTL ONE; +HYPROMELLOSE 0.3 % OPTH GEL 10 GM (0.34 FL OZ) TUBE ONE; +LANTUS2P SQ; +NOVOLOGP2 SQ; +PHENYLEPHRINE HCL 2.5% OPTH SOLN 2 ML BTL ONE; +PROPARACAINE HCL 0.5% OPHT SOLN 15 ML BTL ONE; +TROPICAMIDE 1% OPHT SOLN 15 ML BTL ONE
--- NOTE | 2017-02-23 14:47 | MP ---
cc: ANDREW FOLEY DATE OF SURGERY February 23, 2017 PREOPERATIVE DIAGNOSIS: Cloudy posterior capsule right eye. POSTOPERATIVE DIAGNOSIS: Cloudy posterior capsule right eye. OPERATION: YAG laser posterior capsulotomy, right eye. SURGEON: Andrew Foley MD ANESTHESIA: Topical. COMPLICATIONS: None. INDICATIONS: See history and physical previously dictated. PROCEDURE: The patient arrived at [facility]. Blood pressure was 144/50, pulse 67, respirations 16. A drop of Alphagan P and Mydriacyl were instilled in the right eye. The patient was seated at the YAG laser. A drop of Alcaine was instilled in the right eye and a YAG laser posterior capsulotomy lens was placed on the anterior surface of the right cornea. YAG laser posterior capsulotomy was carried out utilizing 150 of 1.7 millijoules. An adequate opening was seen following the procedure. A drop of Alphagan P was instilled topically. The patient was given a prescription for a topical steroid to be used four times per day and has an appointment for follow up on the first postoperative day in my office. The patient left the [facility] in satisfactory condition. Andrew Foley MD BOILER TESTER/SSB /11:31 AM /2:47 PM .3
== END ==
LOC: PHSDC 09:51
PROVIDERS: ATTEND Ophthalmology
DX: E11.36 Type 2 diabetes mellitus with diabetic cataract (principal); H26.491 Other secondary cataract, right eye; F79 Unspecified intellectual disabilities; G40.909 Epilepsy, unspecified, not intractable, without status epilepticus; Z79.4 Long term (current) use of insulin

== ENCOUNTER 2017-04-28 11:01 | Emergency (ER) | payer MEDICARE, OTHER ==
[~2017-04-28 11:01] MED LIST changes: -BALANCED SALT SOLN OPHT IRRIG 15 ML BTL ONE; -FLUOROMETHOLONE 0.25% OPHT SUSP 5 ML BTL ONE; -HYPROMELLOSE 0.3 % OPTH GEL 10 GM (0.34 FL OZ) TUBE ONE; -PHENYLEPHRINE HCL 2.5% OPTH SOLN 2 ML BTL ONE; -PROPARACAINE HCL 0.5% OPHT SOLN 15 ML BTL ONE; -TROPICAMIDE 1% OPHT SOLN 15 ML BTL ONE
[2017-04-28 11:11] VITALS: BP 172/73; PULSE 77; RESP 18; TEMP 98.3; O2SAT 98
--- NOTE | 2017-04-28 11:41 | PD ---
HPI Chief Complaint: Pain: Acute or Chronic Time Seen by Provider: 11:36 Travel History International Travel<30 days: No Contact w/Intl Traveler<30days: No Traveled to known affect area: No History of Present Illness HPI 52-year-old female with history of mental retardation, seizures, chronic back pains, presents to the ER today brought in by her mom because she had a grand mal seizure 5 days ago and fell in her back, and has been having back pain since then, having difficulty getting up from bed. Mom states that she tells her to go to the bathroom in her diaper, she is having trouble helping her up. She does not think that the patient has had any incontinence. She denies any head injury or other injuries. Patient has seizures on a regular basis according to mom and get several seizures monthly. Her mental status has been back to normal. Modifying Factors: None Associated Signs & Symptoms: Back pain after seizure Risk Factors: History of chronic back pains PFSH Past Medical History Anxiety: Yes Cardiovascular Problems: Yes High Cholesterol: Yes Developmental Delay: Yes (Age 12 mentation per mother) Diabetes: Yes Patient Takes Glucophage: No Diminished Hearing: No GERD: Yes Hypertension: Yes Neurologic: Yes Immunizations Current: Yes Seizures: Yes (Epilepsy) Triglycerides - High: Yes Influenza Vaccination: Yes ?: Not Menopausal: Yes Tubal Ligation: Yes Past Surgical History Endocrine Surgery: Yes Gynecologic Surgery: Yes (tubal ligation) Tonsillectomy: Yes Social History Alcohol Use: No Tobacco Use: No Substance Use: No Allergies-Medications (Allergen,Severity, Reaction): Coded Allergies: Codeine (Verified Allergy, Mild, SEIZURE, 04/28/17) Reported Meds & Prescriptions Reported Meds & Active Scripts Active Reported Lantus Inj (Insulin Glargine) 1,000 Unit/10 Ml Vial 22 Units SQ HS Novolog Inj (Insulin Aspart) 1,000 Unit/10 Ml Vial 0 SQ DIRECTED Sliding Scale as directed. Folate (Folic Acid) 1 Mg Tab 1 Mg PO DAILY Lamotrigine 100 Mg Tab 100 Mg PO BID Fenofibrate 145 Mg Tab 145 Mg PO DAILY Oxcarbazepine 300 Mg Tab 300 Mg PO QID Omeprazole 20 Mg Tab 20 Mg PO DAILY Losartan (Losartan Potassium) 25 Mg Tab 25 Mg PO DAILY Clonazepam 0.5 Mg Tab 0.5 Mg PO TID Januvia (Sitagliptin Phosphate) 100 Mg Tab 100 Mg PO DAILY Montelukast (Montelukast Sodium) 10 Mg Tab 10 Mg PO HS Lamotrigine 25 Mg Tab 150 Mg PO BID Review of Systems ROS Limitations: Poor Historian (history per mom) Except as stated in HPI: all other systems reviewed are Neg (per mom) Physical Exam Narrative GENERAL: Middle age white female patient who is currently in mild distress. Laying in bed. Awake, alert, oriented 3 but a poor historian. SKIN: Focused skin assessment warm/dry. HEAD: Atraumatic. Normocephalic. EYES: Pupils equal and round. No scleral icterus. No injection or drainage. ENT: No nasal bleeding or discharge. Mucous membranes pink and moist. NECK: Trachea midline. No JVD. CARDIOVASCULAR: Regular rate and rhythm. No murmur appreciated. RESPIRATORY: No accessory muscle use. Clear to auscultation. Breath sounds equal bilaterally. GASTROINTESTINAL: Abdomen soft, non-tender, nondistended. Hepatic and splenic margins not palpable. BACK: No CVA tenderness. No rash. No point tenderness on palpation of the spine. No obvious step-offs. Pelvis: stable and mildly tender to palpation of the left hip area, there is notable ecchymosis to that area as well. Nontender range of motion of the hips. MUSCULOSKELETAL: No obvious deformities. No clubbing. No cyanosis. No edema. NEUROLOGICAL: Awake and alert. No obvious cranial nerve deficits. Motor grossly within normal limits. Normal speech. PSYCHIATRIC: Appropriate mood and affect; insight and judgment normal. Data Data Last Documented VS Vital Signs Date Time Temp Pulse Resp B/P Pulse Ox O2 Delivery O2 Flow Rate FiO2 04/28/17 11:43 75 18 169/90 95 Room Air 04/28/17 11:11 98.3 Orders Chest, Single Ap (04/28/17 11:36) Spine, Lumbar Comp W/Obliq (04/28/17 11:36) Pelvis, Ap Only (Routine) (04/28/17 11:36) Acetamin-Hydrocod 325-5 Mg ([place] 5-325 (04/28/17 11:45) MDM Medical Decision Making Medical Screen Exam Complete: Yes Emergency Medical Condition: Yes Medical Record Reviewed: Yes Interpretation(s) Last 24 hours Impressions Pelvis X-Ray 04/28/17 1136 Signed Impressions: Service Date/Time: Friday, April 28, 2017 11:57 - CONCLUSION: No acute fracture or joint dislocation. Chuck Nova MD Lumbar Spine X-Ray 04/28/17 1136 Signed Impressions: Service Date/Time: Friday, April 28, 2017 11:59 - CONCLUSION: 1. There is an old compression fracture involving the body of L3. 2. There are primary bony degenerative change is present. 3. Probable right kidney stone. Chuck Nova MD Differential Diagnosis Acute on chronic back pain versus back contusion versus acute fractures Narrative Course X-rays did not show any signs of acute fractures. At this point, it appears that she has some back contusions causing pain. My plan would be to release her with symptomatic relief or contusions. Return for any worsening in pain, difficulty with incontinence, neurological symptoms, or any other issues as needed. The plan was discussed with mom and she states understanding. Patient should follow-up with her primary care physician next week as well. Diagnosis Primary Impression: Back contusion Med/Other Pt SpecificInfo: Prescription(s) given Scripts Tramadol 50 Mg Tab50 Mg PO Q6H PRN (PAIN) #15 TAB Ref 0 Prov:Bony Avelar MD 04/28/17 Disposition: 01 DISCHARGE HOME Condition: Stable Bony Avelar MD Apr 28, 2017 11:41
[2017-04-28 11:43] VITALS: BP 169/90; PULSE 75; RESP 18; O2SAT 95
[2017-04-28] MEDS ORDERED: ACETAMINOPHEN/HYDROcodone 325 MG/5 MG TAB PO ONE (11:45)
--- NOTE | 2017-04-28 12:23 | RADRPT ---
EXAM DATE/TIME: 04/28/2017 11:57 [facility] COMPARISON: No previous studies available for comparison. INDICATIONS : Patient fell this morning. MEDICAL HISTORY : Diabetes mellitus type II. Hypertension Seizures. SURGICAL HISTORY : None. ENCOUNTER: Initial ACUITY: 1 day PAIN SCORE: 7/10 LOCATION: Left Hip FINDINGS: A single frontal view of the pelvis demonstrates no evidence of fracture. The bony pelvic ring is in tact. Bony mineralization is normal. The soft tissues are intact. CONCLUSION: No acute fracture or joint dislocation. Chuck Nova MD on April 28, 2017 at 12:21 Board Certified Radiologist. This report was verified electronically.
--- NOTE | 2017-04-28 12:26 | RADRPT ---
EXAM DATE/TIME: 04/28/2017 11:59 [facility] COMPARISON: No previous studies available for comparison. INDICATIONS : Patient fell this morning. MEDICAL HISTORY : Diabetes mellitus type II. Hypertension Seizures. SURGICAL HISTORY : None. ENCOUNTER: Initial ACUITY: 1 day PAIN SCORE: 8/10 LOCATION: Bilateral L-spine. FINDINGS: There is good alignment of the lumbar spine. There appears to be an old compression fracture involvin g L3. There are degenerative changes involving the lower thoracic spine and upper lumbar spine. The r est of the lumbar vertebral bodies are grossly intact. No paraspinal soft tissue swelling. There is g ood alignment of the SI joints. There is a calcification overlying the right kidney. Probable pars de fects at L5. No evidence of spondylolisthesis. CONCLUSION: 1. There is an old compression fracture involving the body of L3. 2. There are primary bony degenerative change is present. 3. Probable right kidney stone. Chuck Nova MD on April 28, 2017 at 12:22 Board Certified Radiologist. This report was verified electronically.
--- NOTE | 2017-04-28 12:41 | RADRPT ---
EXAM DATE/TIME: 04/28/2017 11:56 [facility] COMPARISON: CHEST PA & LAT, December 14, 2014, 20:03. INDICATIONS : Patient fell this morning. MEDICAL HISTORY : Diabetes mellitus type II. Hypertension Seizures. SURGICAL HISTORY : None. ENCOUNTER: Initial ACUITY: 1 day PAIN SCORE: 0/10 LOCATION: Bilateral chest FINDINGS: A single view of the chest demonstrates the lungs to be symmetrically aerated without evidence of mas s, infiltrate or effusion. The cardiomediastinal contours are unremarkable. Osseous structures are intact. CONCLUSION: No acute disease. No significant change has occurred. Chuck Nova MD on April 28, 2017 at 12:39 Board Certified Radiologist. This report was verified electronically.
[2017-04-28] MEDS ORDERED: TRAM50TA PO (12:51)
[2017-04-28 13:34] VITALS: BP 144/71
== END 2017-04-28 13:35 | disposition home or self-care (01) ==
LOC: PHED 11:01
DX: S30.0XXA Contusion of lower back and pelvis, initial encounter (principal); S70.02XA Contusion of left hip, initial encounter; R56.9 Unspecified convulsions; E78.00 Pure hypercholesterolemia, unspecified; I10 Essential (primary) hypertension; E11.9 Type 2 diabetes mellitus without complications; K21.9 Gastro-esophageal reflux disease without esophagitis
CPT/HCPCS: 71010; 72110; 72170; 99284

== ENCOUNTER 2017-07-12 11:57 | Emergency (ER) | payer MEDICARE, OTHER ==
[~2017-07-12 11:57] MED LIST changes: +TRAM50TA PO
[2017-07-12 12:01] VITALS: BP 173/72; PULSE 93; RESP 20; TEMP 98.1; O2SAT 96
--- NOTE | 2017-07-12 12:08 | PD ---
HPI Chief Complaint: seizures Time Seen by Provider: 12:03 Travel History International Travel<30 days: No Contact w/Intl Traveler<30days: No Traveled to known affect area: No History of Present Illness HPI 52-year-old female presents via [facility]. Past medical history for diabetes seizures and developmental delay. Lives at home with her mother. Mother reports increased frequency of seizures over the last week. States she tried to call her primary care provider who did not return her calls. States that the patient is at baseline. Denies any postictal state. PFSH Past Medical History Anxiety: Yes Cardiovascular Problems: Yes High Cholesterol: Yes Developmental Delay: Yes (Age 12 mentation per mother) Diabetes: Yes Diminished Hearing: No GERD: Yes Hypertension: Yes Neurologic: Yes Immunizations Current: Yes Seizures: Yes (Epilepsy) Triglycerides - High: Yes Menopausal: Yes Tubal Ligation: Yes Past Surgical History Endocrine Surgery: Yes Gynecologic Surgery: Yes (tubal ligation) Tonsillectomy: Yes Social History Alcohol Use: No Tobacco Use: No Substance Use: No Allergies-Medications (Allergen,Severity, Reaction): Coded Allergies: codeine (Unverified Allergy, Mild, SEIZURE, 07/12/17) Reported Meds & Prescriptions Reported Meds & Active Scripts Active Reported Folic Acid 1 Mg Tablet 1 Mg PO DAILY Carbamazepine 100 Mg Chew 300 Mg CHEW QID Lantus Inj (Insulin Glargine) 1,000 Unit/10 Ml Vial 22 Units SQ HS Novolog Inj (Insulin Aspart) 1,000 Unit/10 Ml Vial 0 SQ DIRECTED Sliding Scale as directed. Lamotrigine 100 Mg Tab 100 Mg PO BID Fenofibrate 145 Mg Tab 145 Mg PO DAILY Omeprazole 20 Mg Tab 20 Mg PO DAILY Losartan (Losartan Potassium) 25 Mg Tab 25 Mg PO DAILY Clonazepam 0.5 Mg Tab 0.5 Mg PO TID Januvia (Sitagliptin Phosphate) 100 Mg Tab 100 Mg PO DAILY Montelukast (Montelukast Sodium) 10 Mg Tab 10 Mg PO HS Lamotrigine 25 Mg Tab 150 Mg PO BID Review of Systems General / Constitutional: No: Fever Eyes: No: Visual changes HENT: No: Headaches Cardiovascular: No: Chest Pain or Discomfort Respiratory: No: Shortness of Breath Gastrointestinal: No: Abdominal Pain Genitourinary: No: Dysuria Musculoskeletal: No: Pain Skin: No Rash Neurologic: No: Weakness Psychiatric: No: Depression Endocrine: No: Polydipsia Hematologic/Lymphatic: No: Easy Bruising Physical Exam Narrative GENERAL: Well-nourished, poorly developed SKIN: Focused skin assessment warm/dry. HEAD: Normocephalic. EYES: No scleral icterus. No injection or drainage. NECK: Supple, trachea midline. No JVD or lymphadenopathy. CARDIOVASCULAR: Regular rate and rhythm without murmurs, gallops, or rubs. RESPIRATORY: Breath sounds equal bilaterally. No accessory muscle use. GASTROINTESTINAL: Abdomen soft, non-tender, nondistended. MUSCULOSKELETAL: No cyanosis, or edema. BACK: Nontender without obvious deformity. No CVA tenderness. Data Data Last Documented VS Vital Signs Date Time Temp Pulse Resp B/P (MAP) Pulse Ox O2 Delivery O2 Flow Rate FiO2 07/12/17 12:01 98.1 93 20 173/72 (105) 96 Orders Orders Lamictal (Lamotrigine) (07/12/17 12:10) Labs Laboratory Tests Test 07/12/17 13:10 [facility] Medical Decision Making Medical Screen Exam Complete: Yes Emergency Medical Condition: Yes Differential Diagnosis Seizures, hypoglycemia, medication noncompliance Narrative Course Assessment and plan discussed with mother and patient at bedside. No seizures observed while in the emergency room Diagnosis Primary Impression: Seizures Patient Instructions: General Instructions Additional Instructions: Increase Lamotrigine to 250 mg by mouth twice a day. Encouraged rest and good fluid intake. Encouraged to follow-up with neurology. Encouraged to return to emergency room with any onset of new symptoms. Med/Other Pt SpecificInfo: Prescription(s) given Scripts Lamotrigine (Lamotrigine) 150 Mg Tab 150 MG PO BID for Control Seizures, #30 TAB 0 Refills Prov: Corey Jarrett MD 07/12/17 Disposition: 01 DISCHARGE HOME Condition: Good Corey Jarrett MD Jul 12, 2017 12:08
[2017-07-12] MEDS ORDERED: FOLI1TAB6 PO (12:10)
[2017-07-12] MEDS ORDERED: CARB100C CHEW (12:10)
[2017-07-12] MEDS ORDERED: LAMO150T PO (13:38)
[2017-07-19] MEDS ORDERED: OXCA300T PO (14:05)
[2017-07-19] MEDS ORDERED: DULO1CAP2 PO (14:05)
[2017-07-19] MEDS ORDERED: ESTR1TAB PO (14:05)
[2017-07-19] MEDS ORDERED: MEDR2.5T4 PO (14:05)
[2017-07-19] MEDS ORDERED: LACO50 PO (14:05)
== END 2017-07-12 14:15 | disposition home or self-care (01) ==
LOC: PHED 11:57
DX: G40.909 Epilepsy, unspecified, not intractable, without status epilepticus (principal); E11.9 Type 2 diabetes mellitus without complications; Z79.4 Long term (current) use of insulin
CPT/HCPCS: 80175; 99283